=== PATIENT | female | born 1985 | race Caucasian/White ===

== ENCOUNTER 2016-10-28 20:33 | Inpatient (IN) ==
[2016-10-28] MEDS ORDERED: QUELICIN ONE (20:35)
[2016-10-28] MEDS: DIPRIVAN 1% 1,000 MG/100 ML BOTTLE IV SCH ×2 (20:45→23:39)
[2016-10-28] MEDS ORDERED: DIPRIVAN 1% 2,000 MG/200 ML BOTTLE ONE (20:46)
[2016-10-28] MEDS ORDERED: DIPRIVAN 1% 1,000 MG/100 ML BOTTLE IV SCH (20:48)
[2016-10-28] MEDS ORDERED: QUELICIN IV ONE (20:51)
[2016-10-28 20:57] LABS: MANUAL DIFF NEEDED? NO
[2016-10-28 21:00] LABS: BASO% 0.4 % (0.0-0.8); EOS# 0.27 X1000 (0.0-0.7); HEMATOCRIT 42.5 % (37.0-47.0); HEMOGLOBIN 14.5 g/dL (12.0-16.0); LYMPH# 2.46 X1000 (1.2-3.4); LYMPH% 27.2 % (20.5-51.1); MCH 30.7 PG (27-31); MCHC 34.1 g/dL (33-37); MONO# 0.36 X1000 (0.11-0.59); MPV 10.6 FL (7.4-10.4); NEUT% 65.4 % (42.2-75.2); PLT 291 X1000 (130-400); RBC 4.72 XMIL (4.2-5.4)
--- NOTE | 2016-10-28 21:08 | Diag Imaging Result Doc PS360 ---
EXAM: CHEST-PORTABLE HISTORY: OVERDOSE TECHNIQUE: AP portable chest dated 10/28/2016 at 2100 COMMENT: There is an endotracheal tube with its tip at thoracic inlet and an NG tube which passes below the diaphragm. Considering differences in technique there has been no significant change since 03/19/2016. IMPRESSION: No acute disease. Electronically signed by Harley Goncalves 10/28/2016 9:06 PM
--- NOTE | 2016-10-28 21:09 | Diag Imaging Result Doc PS360 ---
EXAM: CHEST/ABD TUBE PLACEMENT HISTORY: NG TUBE PLACEMENT TECHNIQUE: KUB COMMENT: There is an NG tube with its tip in the fundus of the stomach. The bowel gas pattern is unremarkable. There is no evidence of organomegaly or mass. IMPRESSION: NG tube in the stomach. Electronically signed by Harley Goncalves 10/28/2016 9:06 PM
[2016-10-28 21:15] LABS: ACETAMINOPHEN < 1.2 ug/mL (10-30); AGAP 14; ALBUMIN 4.2 g/dL (3.5-5.0); ALKALINE PHOSPHATASE 57 U/L (32-104); BUN 12 mg/dL (8-22); CALCIUM 9.1 mg/dL (8.8-10.2); CHLORIDE 105 mmol/L (98-107); COSMO 285; GOT 11 U/L (10-30); GPT 17 U/L (10-36); POTASSIUM 3.9 mmol/L (3.5-5.1); SODIUM 143 mmol/L (136-145); TCO2 24 mmol/L (25-35); TOTAL BILIRUBIN 0.24 mg/dL (0.20-1.00)
[2016-10-28] MEDS ORDERED: NS 1,000 ML IV ONE (21:18)
[2016-10-28 21:42] LABS: UR AMPHETAMINES QUAL PRESUMPTIVE POSITIVE (NONE DETECT); UR BARBITUATES QUAL NONE DETECTED (NONE DETECT); UR BENZODIAZEPIN QUAL PRESUMPTIVE POSITIVE (NONE DETECT); UR CANNABINOIDS QUAL NONE DETECTED (NONE DETECT); UR COCAINE QUAL NONE DETECTED (NONE DETECT); UR METHADONE QUAL NONE DETECTED (NONE DETECT); UR OPIATES QUAL NONE DETECTED (NONE DETECT); UR OXYCODONE QUAL NONE DETECTED (NONE DETECT); UR PCP QUAL NONE DETECTED (NONE DETECT)
[2016-10-28 21:53] LABS: ALLEN TEST YES; BE 2.8 mmoll (-3.0-3.0); BLOOD TYPE ARTERIAL; DRAW SITE R RADIAL; METHB 1.1 % (0.0-1.5); O2(CT) 19.2 mL/dL (15.0-23.0); PCO2(98.6) 40 mmHg (35-45); PO2(98.6) 411 mmHg (60-100); SAMPLE BLOOD; SRATE 14 BPM; THB 13.5 g/dL (11.5-17.4); TVOL 550 mL; pH(98.6) 7.44 (7.35-7.45)
[2016-10-28 21:54] LABS: MODALITY VENTILATOR
--- NOTE | 2016-10-29 00:35 | HISTORY AND PHYSICAL ---
PRIMARY CARE PHYSICIAN: None. CHIEF COMPLAINT: Found unresponsive. Altered mental status. HISTORY OF PRESENT ILLNESS: This is a 31-year-old female with a past medical history of depression and seizure disorder, who was basically brought to the emergency department because she tried to commit suicide. She took 40 pills of Xanax and 20 of Klonopin. Apparently, her fiance, who she was living with, committed suicide just in front of her. Patient was feeling bad she did warn anybody about his suicidal attempt. She was found altered, talking that she wants to , so she was brought immediately to the emergency department, where she was intubated to protect the airways. At the time of my examination, she is sedated and intubated. The patient is going to be admitted to the hospital for further management. PAST MEDICAL HISTORY: 1. History of suicidal attempt 2 years ago. 2. Seizure disorder, currently on Keppra 750 mg p.o. b.i.d. 3. She was diagnosed with diabetes mellitus type 2, although she is not taking any medications. PAST SURGICAL HISTORY: 1. Total hysterectomy at age 23 because of fibroids. 2. Several right hand surgeries. 3. Cholecystectomy. 4. Tonsillectomy. ALLERGIES: Patient is allergic to morphine, Toradol, penicillin, Levaquin,, ciprofloxacin, and shellfish. SOCIAL HISTORY: Patient was living with her fiance. Apparently, the patient's family is not aware of any drug abuse, no smoking or drinking alcohol. REVIEW OF SYSTEMS: Not possible to evaluate because of the situation of the patient. PHYSICAL EXAMINATION: VITAL SIGNS: Temperature 99.0, heart rate 86, respiratory rate 14, blood pressure 146/116, O2 saturation 100% on mechanical ventilator. GENERAL: This is a 31-year-old female lying in bed, sedated and intubated. HEENT: Head is normocephalic, atraumatic. Anicteric sclerae and pale conjunctivae. Mucous membranes moist. NECK: Supple. No JVD noted. No carotid bruits. No lymphadenopathy. No thyromegaly. CARDIOVASCULAR: S1, S2 heard. No murmurs, gallops, or rubs. Regular rate and rhythm. RESPIRATORY: Clear bilaterally to auscultation. No work of breathing or using accessory muscles. ABDOMEN: Soft, nontender to palpation. Bowel sounds present. No organomegaly. EXTREMITIES: Many scars on the right hand. No clubbing, cyanosis, or edema. NEUROLOGICAL: Patient is sedated and intubated. LABORATORY DATA: Unremarkable. UDS is positive for amphetamines and benzodiazepines. ASSESSMENT: 1. Benzodiazepine intentional overdose. 2. Suicidal attempt. 3. Acute respiratory failure. 4. History of depression, with previous suicidal attempt. PLAN: The patient is going to be admitted to the hospital. The patient was intubated to protect airways. We are going to provide aggressive fluid resuscitation to help her wash out all of the benzodiazepines in the system. Patient intubated. We are going to consult Dr. Albert from Pulmonary to help us in the management of the vent. There is good oxygenation in the first ABGs in the ER. As per family, the patient was talking even before being sent to the ER, so I guess our concern for anoxic encephalopathy is lower. For seizure disorder, we are going to continue with Keppra, but we are going to give her IV, same dose, 750 mg twice daily. Because of recurring history of suicidal attempt,, we are planning to consult [facility] after this patient is medically stable. Further recommendations to follow according to the clinical situation of the patient. cc: Randy Arnold MD
[2016-10-29] MEDS ORDERED: ZOFRAN IV PRN (01:39)
[2016-10-29] MEDS: DIPRIVAN 1% 1,000 MG/100 ML BOTTLE IV SCH ×7 (02:03→21:19)
[2016-10-29] MEDS: LOVENOX SUBQ SCH (02:04)
[2016-10-29] MEDS: NS 1,000 ML IV SCH ×4 (02:04→21:20)
[2016-10-29] MEDS: PROTONIX IV SCH (02:05)
[2016-10-29] MEDS: KEPPRA 750 MG in NS 100 ML IV SCH ×2 (02:58→14:07)
[2016-10-29 04:16] LABS: ALLEN TEST YES; BE 0.1 mmoll (-3.0-3.0); BLOOD TYPE ARTERIAL; METHB 0.8 % (0.0-1.5); O2(CT) 18.3 mL/dL (15.0-23.0); PCO2(98.6) 39 mmHg (35-45); PO2(98.6) 90 mmHg (60-100); SAMPLE BLOOD; SAO2 99.1 % (95.0-100.0); SRATE 14 BPM; THB 13.5 g/dL (11.5-17.4); TVOL 550 mL; pH(98.6) 7.41 (7.35-7.45)
[2016-10-29 04:17] LABS: MODALITY VENTILATOR
[2016-10-29 05:27] LABS: MANUAL DIFF NEEDED? NO
--- NOTE | 2016-10-29 05:38 | EKG Report ---
Test Performed on : 10/28/2016 10:24:14 PM Test Reason : Suspected Overdose Blood Pressure : / mmHG Vent. Rate : 074 BPM Atrial Rate : 074 BPM P-R Int : 152 ms QRS Dur : 090 ms QT Int : 396 ms P-R-T Axes : 060 066 031 degrees QTc Int : 439 ms Normal sinus rhythm. Normal ECG When compared with ECG of 18-JUL-2015 18:23, Vent. rate has decreased BY 42 BPM Non-specific change in ST segment in Lateral leads T wave inversion no longer evident in Inferior leads T wave inversion no longer evident in Lateral leads Confirmed by Howard NANCE, Maikel Pineda ([id number]) on 10/31/2016 9:10:41 AM
[2016-10-29 05:53] LABS: BASO% 0.5 % (0.0-0.8); EOS% 3.8 % (0.0-10.0); HEMATOCRIT 37.8 % (37.0-47.0); HEMOGLOBIN 12.7 g/dL (12.0-16.0); LYMPH# 3.96 X1000 (1.2-3.4); LYMPH% 50.3 % (20.5-51.1); MCH 30.3 PG (27-31); MCHC 33.6 g/dL (33-37); MCV 90.2 FL (81-99); MONO# 0.36 X1000 (0.11-0.59); MONO% 4.6 % (1.7-9.3); MPV 10.8 FL (7.4-10.4); NEUT% 40.8 % (42.2-75.2); PLT 254 X1000 (130-400); RBC 4.19 XMIL (4.2-5.4)
[2016-10-29 06:10] LABS: AGAP 14; BUN 11 mg/dL (8-22); CALCIUM 8.5 mg/dL (8.8-10.2); CHLORIDE 108 mmol/L (98-107); COSMO 286; POTASSIUM 2.7 mmol/L (3.5-5.1); SODIUM 144 mmol/L (136-145); TCO2 22 mmol/L (25-35)
[2016-10-29 07:45] LABS: DRAW SITE R RADIAL
[2016-10-29] MEDS: POTASSIUM CHLORIDE 40 MEQ/SWI 40 MEQ/100 ML IVPB IV SCH ×2 (09:23→10:54)
--- NOTE | 2016-10-29 10:44 | PROGRESS NOTE ---
DATE: 10/29/2016 SUBJECTIVE: The patient is intubated. Her mother was at the bedside. No acute event reported. Her mother reported that the patient was taking a lot of Xanax and Klonopin to end her life because her fiance did commit suicide this past Thursday and she lost her disability check. OBJECTIVE: Vital Signs: Blood pressure 103/65, pulse of 60, respirations 14, temperature of 96.5 degrees, saturations of 98% on 40% FiO2 assist control. General Appearance: Obese, white female, intubated. HEENT: Anicteric sclerae. Clear conjunctivae. Neck: Supple. No JVD. No bruit. Cardiovascular: S1, S2. Normal rate and rhythm. No murmur, rubs, or gallops. Pulmonary: Clear to auscultation bilaterally. GI: Soft, nontender, nondistended. Normoactive bowel sounds. Musculoskeletal: No clubbing, cyanosis, or edema. LABORATORY: White count 7.88, hemoglobin 12.7, hematocrit of 37.8, platelets of 254. Chemistry: Sodium 144, potassium is 2.7, chloride 108, bicarbonate 24, BUN 11, creatinine 0.7, glucose of 99. ASSESSMENT AND PLAN: A 31-year-old with a history of depression and anxiety disorder admitted to the hospital after she ingested 17 tablets of Xanax and unknown amount of Klonopin and tried to kill herself. 1. Overdose with a suicidal attempt. This is a recurrent issue for the patient. She was depressed of losing a loved one this week and lost disability check. The patient is still requiring mechanical life support. We will continue to keep the patient in the intensive care unit. We will continue to monitor and will try to extubate the patient as soon as feasible. Continue supportive care. 2. Hypokalemia. We will replete her potassium. 3. Deep vein thrombosis prophylaxis. The patient is on Lovenox. 4. History of seizure. We will continue Keppra. cc: Randy Arnold MD
--- NOTE | 2016-10-29 14:10 | CONSULTATION ---
DATE OF CONSULTATION: 10/29/2016 REFERRING PHYSICIAN: Randy Arnold MD CHIEF COMPLAINT: Evaluation for vent management, respiratory failure, and drug overdose. HISTORY OF PRESENTING ILLNESS: This is a 31-year-old female with past history of seizure disorder, depression, disability, overweight, who after her fiance' killed himself before her eye this last Thursday. She attempted overdose with benzodiazepines and told her family she did, so brought to the emergency room. We were called for vent management. Case discussed with mother. PAST MEDICAL HISTORY: Type 2 diabetes, seizure disorder, depression, suicide attempts in the past. PAST SURGICAL HISTORY: Tonsillectomy, cholecystectomy, right hand surgeries, and hysterectomy for fibroids. ALLERGIES: Positive to Cipro, Levaquin, penicillin, Toradol, morphine, and shellfish. SOCIAL HISTORY: Was living with her fiyeni'. Not a smoker. REVIEW OF SYSTEMS: As detailed in history of presenting illness; otherwise, noncontributory. FAMILY HISTORY: Positive for depression, hypertension. MEDICATIONS: In the hospital and at home reviewed In the hospital includes Diprivan, Lovenox for DVT prophylaxis, Keppra, Zofran, and Protonix. At home she is on clonazepam and alprazolam. PHYSICAL EXAMINATION: General: She is sedated, intubated, and in bed. Her mom is at the bedside. Vital Signs: Noted. Head and Neck Examination: Trachea midline. Chest Examination: Good entry. Cardiac Examination: S1, S2. Abdomen: Nontender on examination. Extremities: No pedal edema. Neurological Examination: Sedated. LABS AND INVESTIGATIONS: ABG, CBC, CMP, chest x-ray reviewed. Potassium is 2.7 supplied, WBC 7.088. PH 7.4, pCO2 39, PO2 90% on assist control ventilation, 40%, 14 rate, 50 tidal volume, and PEEP of 5. Once sedation is held, the patient wakes up per nursing staff and mother. Again, chest x-ray shows no acute disease. ASSESSMENT AND PLAN: A 31-year-old female with a past medical history as above, now presented with: 1. Respiratory failure secondary to overdose and ventilatory management is required. 2. Overdose with benzodiazepines in suicidal attempt. PLAN: 1. Assist control ventilation. 2. DVT and GI prophylaxis. 3. Sedation. 4. Vent weaning trials in the morning. It is encouraging that the patient was awake when sedation is held, per nursing staff and mother. Thank you for the courtesy of this consultation. cc: MD Randy Hussein MD
[2016-10-30] MEDS: SODIUM CHLORIDE 0.9% INJ SCH (01:20)
[2016-10-30] MEDS: PROTONIX IV SCH (01:20)
[2016-10-30] MEDS: LOVENOX SUBQ SCH (01:20)
[2016-10-30] MEDS: KEPPRA 750 MG in NS 100 ML IV SCH ×2 (01:20→13:12)
[2016-10-30] MEDS: NS 1,000 ML IV SCH ×4 (02:45→18:47)
[2016-10-30] MEDS: DIPRIVAN 1% 1,000 MG/100 ML BOTTLE IV SCH ×2 (02:45→05:52)
[2016-10-30 04:13] LABS: ALLEN TEST YES; BE 0.3 mmoll (-3.0-3.0); BLOOD TYPE ARTERIAL; DRAW SITE R RADIAL; METHB 1.4 % (0.0-1.5); O2(CT) 17.9 mL/dL (15.0-23.0); PCO2(98.6) 48 mmHg (35-45); PO2(98.6) 93 mmHg (60-100); SAMPLE BLOOD; SAO2 98.3 % (95.0-100.0); SRATE 12 BPM; THB 13.2 g/dL (11.5-17.4); TVOL 500 mL; pH(98.6) 7.35 (7.35-7.45)
[2016-10-30 04:14] LABS: MODALITY VENTILATOR
[2016-10-30 05:45] LABS: MANUAL DIFF NEEDED? NO
[2016-10-30 05:52] LABS: BASO% 0.4 % (0.0-0.8); EOS# 0.23 X1000 (0.0-0.7); EOS% 3.4 % (0.0-10.0); HEMATOCRIT 36.7 % (37.0-47.0); HEMOGLOBIN 11.8 g/dL (12.0-16.0); LYMPH# 2.63 X1000 (1.2-3.4); LYMPH% 38.4 % (20.5-51.1); MCH 30.1 PG (27-31); MCHC 32.2 g/dL (33-37); MCV 93.6 FL (81-99); MONO# 0.37 X1000 (0.11-0.59); MONO% 5.4 % (1.7-9.3); MPV 11.1 FL (7.4-10.4); NEUT% 52.4 % (42.2-75.2); PLT 211 X1000 (130-400); RBC 3.92 XMIL (4.2-5.4)
[2016-10-30 06:48] LABS: AGAP 11; BUN 9 mg/dL (8-22); CHLORIDE 112 mmol/L (98-107); COSMO 290; POTASSIUM 3.8 mmol/L (3.5-5.1); SODIUM 147 mmol/L (136-145); TCO2 24 mmol/L (25-35)
--- NOTE | 2016-10-30 07:21 | Diag Imaging Result Doc PS360 ---
EXAM: CHEST-1 VIEW HISTORY: SOB TECHNIQUE: AP portable at 0500 COMMENT: There is an endotracheal tube with its tip slightly above the thoracic inlet. There is an NG tube with tip below the diaphragm. There is minimal by basilar atelectasis. The overall appearance of the chest has not changed significantly since 10/28/2016. IMPRESSION: Subsegmental atelectasis. Electronically signed by Harley Goncalves 10/30/2016 7:19 AM
[2016-10-30] MEDS ORDERED: HALDOL IV ONE (08:32)
[2016-10-30 09:47] LABS: BE 1.3 mmoll (-3.0-3.0); BLOOD TYPE ARTERIAL; METHB 1.4 % (0.0-1.5); PCO2(98.6) 44 mmHg (35-45); PO2(98.6) 83 mmHg (60-100); SAMPLE BLOOD; SAO2 98.6 % (95.0-100.0); THB 12.6 g/dL (11.5-17.4); pH(98.6) 7.39 (7.35-7.45)
[2016-10-30 09:48] LABS: ALLEN TEST YES; DRAW SITE R RADIAL; MODALITY VENTILATOR
--- NOTE | 2016-10-30 11:53 | PROGRESS NOTE ---
DATE: 10/30/2016 SUBJECTIVE: The patient remains intubated. We are weaning the patient off. No acute event reported by the overnight staff. OBJECTIVE: Vital Signs: Blood pressure 116/67, pulse of 65, respirations of 12, temperature of 97.4 degrees, saturation of 100% on 30% FiO2. General Appearance: Obese, white female, intubated. Cardiovascular: S1 and S2. Normal rate and rhythm. No murmur, rubs, or gallops. Pulmonary: Clear to auscultation bilaterally. GI: Soft, nontender, nondistended. Normoactive bowel sounds. Musculoskeletal: No clubbing, cyanosis, or edema. Laboratory: Her white count is 6.84, hemoglobin 11.8, hematocrit of 36.7, platelets of 211,000. Chemistry: Sodium 147, potassium 3.8, chloride 112, bicarb 24, BUN 9, creatinine 0.6, glucose of 77. ASSESSMENT AND PLAN: A 31-year-old, white female with depression, admitted to the hospital for overdose. 1. Intentional overdose on Xanax and Klonopin. We will continue supportive care. The patient was intubated. We are trying to extubate the patient. We will continue to monitor her in the intensive care unit. Once she is medically stable, we will get Steve Foley to see her. 2. History of seizure disorder. We will continue Keppra. 3. Deep venous thrombosis prophylaxis. Put the patient on Lovenox. 4. Code status. The patient is a full code. cc: Randy Arnold MD
[2016-10-30] MEDS: HALDOL IV PRN (22:16)
[2016-10-31] MEDS: SODIUM CHLORIDE 0.9% INJ SCH (01:20)
[2016-10-31] MEDS: NS 1,000 ML IV SCH (01:20)
[2016-10-31] MEDS: PROTONIX IV SCH (01:20)
[2016-10-31] MEDS: LOVENOX SUBQ SCH (01:20)
[2016-10-31] MEDS: KEPPRA 750 MG in NS 100 ML IV SCH ×2 (01:20→12:49)
[2016-10-31 04:29] LABS: ALLEN TEST YES; BE -0.1 mmoll (-3.0-3.0); BLOOD TYPE ARTERIAL; DRAW SITE R RADIAL; METHB 0.8 % (0.0-1.5); O2(CT) 15.6 mL/dL (15.0-23.0); PCO2(98.6) 47 mmHg (35-45); PO2(98.6) 121 mmHg (60-100); SAMPLE BLOOD; THB 11.2 g/dL (11.5-17.4); pH(98.6) 7.35 (7.35-7.45)
[2016-10-31 04:32] LABS: MODALITY CANNULA
--- NOTE | 2016-10-31 07:13 | Diag Imaging Result Doc PS360 ---
EXAM: CHEST-1 VIEW HISTORY: SOB TECHNIQUE: AP portable at 0500 COMMENT: There is increasing ill-defined opacity over the right base compared to 10/30/2016. Otherwise has been no significant change. The NG tube and endotracheal tube have been removed. IMPRESSION: Worsened atelectasis or pneumonia right lower lobe. Electronically signed by Harley Goncalves 10/31/2016 7:10 AM
[2016-10-31 07:49] LABS: MANUAL DIFF NEEDED? NO
[2016-10-31 07:53] LABS: BASO% 0.3 % (0.0-0.8); EOS# 0.21 X1000 (0.0-0.7); EOS% 3.1 % (0.0-10.0); HEMATOCRIT 33.3 % (37.0-47.0); HEMOGLOBIN 10.9 g/dL (12.0-16.0); LYMPH# 2.88 X1000 (1.2-3.4); LYMPH% 41.9 % (20.5-51.1); MCH 30.4 PG (27-31); MCHC 32.7 g/dL (33-37); MONO# 0.34 X1000 (0.11-0.59); MONO% 4.9 % (1.7-9.3); MPV 11.4 FL (7.4-10.4); NEUT% 49.8 % (42.2-75.2); PLT 186 X1000 (130-400); RBC 3.58 XMIL (4.2-5.4)
[2016-10-31 08:20] LABS: AGAP 11; BUN 7 mg/dL (8-22); CALCIUM 7.8 mg/dL (8.8-10.2); CHLORIDE 114 mmol/L (98-107); COSMO 292; POTASSIUM 3.2 mmol/L (3.5-5.1); SODIUM 149 mmol/L (136-145); TCO2 24 mmol/L (25-35)
[2016-10-31] MEDS ORDERED: NS 1,000 ML IV SCH (10:47)
--- NOTE | 2016-10-31 11:25 | PROGRESS NOTE ---
DATE: 10/31/2016 SUBJECTIVE: The patient was extubated yesterday. Still very sedated. She is still very teary, very depressed and still suicidal. OBJECTIVE: Vital Signs: Blood pressure 121/52, pulse 65, respirations 18, temperature 98.8 degrees, saturations of 97% on 2 L nasal cannula. General: Morbidly obese, white female, still very drowsy but easily arousable. HEENT: Anicteric, clear conjunctivae. Neck: Supple. No JVD. No bruit. Cardiovascular: S1, S2. Normal rate and rhythm. No murmur, rubs, or gallops. Pulmonary: Clear to auscultation bilaterally. Gastrointestinal: Soft, nontender, nondistended. Normoactive bowel sounds. Musculoskeletal: No clubbing, cyanosis, or edema. LABORATORY: White count 6.87, hemoglobin 10.9, hematocrit of 33.3. Platelets 186,000. Chemistry: Sodium 149, potassium of 3.2, replete, chloride 114, BUN 7, creatinine 0.6. Glucose of 66. ASSESSMENT AND PLAN: A 31-year-old, white female admitted to the hospital for suicidal attempt by overdose on benzodiazepines. 1. Overdose intentional, depressed, suicidal. Still very sedated. When she has become more awake and alert, we will ask [facility] to evaluate the patient for inpatient treatment. She is still very high risk for recurrent suicidal because of her recent loss of her fiancee. 2. Seizure disorder. We will continue Keppra for now. 3. We will hold all of her benzodiazepine. 4. Deep vein thrombosis prophylaxis. Patient on Lovenox. 5. Code status: Patient is full code.
[2016-10-31] MEDS: HALDOL IV PRN ×2 (14:05→21:11)
[2016-11-01] MEDS: LOVENOX SUBQ SCH (02:17)
[2016-11-01] MEDS: PROTONIX IV SCH (02:17)
[2016-11-01 05:13] LABS: ALLEN TEST YES; BLOOD TYPE ARTERIAL; DRAW SITE R RADIAL; METHB 1.1 % (0.0-1.5); O2(CT) 16.8 mL/dL (15.0-23.0); PO2(98.6) 121 mmHg (60-100); SAMPLE BLOOD; SAO2 99.6 % (95.0-100.0); THB 12.2 g/dL (11.5-17.4); pH(98.6) 7.34 (7.35-7.45)
[2016-11-01 05:15] LABS: MODALITY CANNULA; PCO2(98.6) 51 mmHg (35-45)
[2016-11-01 07:57] LABS: MANUAL DIFF NEEDED? NO
[2016-11-01 08:04] LABS: BASO% 0.3 % (0.0-0.8); EOS# 0.36 X1000 (0.0-0.7); EOS% 4.8 % (0.0-10.0); HEMOGLOBIN 11.4 g/dL (12.0-16.0); LYMPH% 37.1 % (20.5-51.1); MCH 29.8 PG (27-31); MCHC 33.5 g/dL (33-37); MCV 88.8 FL (81-99); MONO# 0.33 X1000 (0.11-0.59); MONO% 4.4 % (1.7-9.3); MPV 10.5 FL (7.4-10.4); NEUT% 53.4 % (42.2-75.2); PLT 218 X1000 (130-400); RBC 3.83 XMIL (4.2-5.4)
--- NOTE | 2016-11-01 08:06 | Diag Imaging Result Doc PS360 ---
EXAM: CHEST-1 VIEW INDICATION: SOB TECHNIQUE: One view COMPARISON: 10/31/2016 FINDINGS: The ill-defined opacity at the right lower lung zone is unchanged. There are no new consolidations. Cardiac silhouette is stable. IMPRESSION: Stable chest. Electronically signed by Munir Talbot 11/01/2016 8:03 AM
[2016-11-01 08:23] LABS: AGAP 9; BUN 4 mg/dL (8-22); CALCIUM 8.3 mg/dL (8.8-10.2); CHLORIDE 109 mmol/L (98-107); COSMO 283; POTASSIUM 3.6 mmol/L (3.5-5.1); SODIUM 144 mmol/L (136-145); TCO2 26 mmol/L (25-35)
--- NOTE | 2016-11-01 13:33 | PROGRESS NOTE ---
DATE: 11/01/2016 SUBJECTIVE: The patient is a little drowsy and sleepy but much better than she was yesterday. More awake and alert. Answers questions appropriately. OBJECTIVE: Vital Signs: Blood pressure 126/76, pulse of 70, respirations 14, temp 98.4 degrees, sat of 100% on 1 L nasal cannula. General Appearance: Morbidly obese, white female, a little drowsy but awake, alert and oriented x3. HEENT: Multiple tattoos, earrings and nose ring but anicteric, clear conjunctivae. Neck: Supple. No JVD. No bruit. Cardiovascular: S1, S2. Normal rate and rhythm. No murmur, rubs, or gallops. Pulmonary: Clear to auscultation bilaterally. GI: Soft, nontender, nondistended. Normoactive bowel sounds. Musculoskeletal: No clubbing, cyanosis, or edema. LABORATORY: White count 7.55, hemoglobin of 11.4, hematocrit 34.0, platelets of 218,000. Chemistry: Sodium 144, potassium 3.6, chloride 109, bicarb 26, BUN 4, creatinine 0.5, glucose of 91. ASSESSMENT AND PLAN: This is a 31-year-old, white female admitted to the hospital after she was intentionally overdosed on benzodiazepine with the intent to commit suicide. Overdose. The patient is medically stable and can transferred to [facility] if appropriate. We will continue supportive care. We will continue to monitor the patient. Patient in the ICU for now.
[2016-11-01 16:33] VITALS: BP 128/74
--- NOTE | 2016-11-02 06:39 | DISCHARGE SUMMARY ---
ADMISSION DATE: 10/28/2016 DISCHARGE DATE: 11/01/2016 PRIMARY CARE PHYSICIAN: Not listed. DISCHARGE DIAGNOSES: 1. Intentionally overdosed on benzodiazepine. 2. Suicidal attempt. 3. Depression. 4. Seizure disorder. DISCHARGE MEDICATIONS: Keppra 750 b.i.d. SIGNIFICANT LABORATORY AND IMAGING: White count 7.55, hemoglobin 11.4, hematocrit of 34, platelets of 218,000. Chemistry: Sodium 140, potassium 3.6, chloride 109, bicarb 26, BUN 4, creatinine 0.5, glucose of 91. Her UDS was positive for amphetamine and benzodiazepine. Chest x- ray on the showed a stable chest x-ray. No new consolidations. There is some ill-defined opacity in the right lower lung that has not been changed. HOSPITAL COURSE: The patient is a 31-year-old, white female with a history of depression, overdose on Xanax and Klonopin, and was intubated upon arrival. The patient had been depressed. Her fiancee a few days prior. The patient has lost her disability and had been very depressed. Subsequently, she decided to take her life by overdose. The patient was admitted to our service. Intubated in the ICU. Pulmonology managing the ventilator. After 2 days of intubation, we were able to extubate the patient. She continued to remain very sedated for another 36 hours until she became more fully awake and alert. She is still depressed. We asked [facility] to come and evaluate the patient for inpatient psychiatric admission so that they can adjust her medications. The patient was transferred to [facility] on 11/01/2016.
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
== END 2016-11-01 18:30 ==
LOC: SUPCPDRO → ED 20:33 → SUPCPDRO 22:14 → SUATTDRO 22:14 → ICU 22:14
PROVIDERS: ATTEND Internal Medicine

== ENCOUNTER 2017-01-09 17:25 | Inpatient (IN) ==
[2017-01-09] MEDS ORDERED: NARCAN IV ONE (17:34)
[2017-01-09] MEDS ORDERED: NS 1,000 ML IV ONE (17:34)
[2017-01-09] MEDS ORDERED: NS 2,000 ML ONE (17:34)
[2017-01-09 17:39] LABS: ALLEN TEST YES; BE -7.5 mmoll (-3.0-3.0); BLOOD TYPE ARTERIAL; DRAW SITE R RADIAL; METHB 1.2 % (0.0-1.5); O2(CT) 19.4 mL/dL (15.0-23.0); SAMPLE BLOOD; SAO2 100.1 % (95.0-100.0); THB 14.2 g/dL (11.5-17.4)
[2017-01-09] MEDS ORDERED: SODIUM BICARBONATE 8.4% IV PUSH ONE (17:39)
[2017-01-09 17:54] LABS: URINE CULTURE NEEDED? NO; URINE MICRO REVIEW NEEDED? NO; URINE SOURCE CATH
[2017-01-09 18:04] LABS: BASO% 0.1 % (0.0-0.8); EOS# 0.05 X1000 (0.0-0.7); EOS% 0.2 % (0.0-10.0); HEMATOCRIT 41.5 % (37.0-47.0); HEMOGLOBIN 13.6 g/dL (12.0-16.0); IMM GRAN# 0.22 X1000 (0.0-0.04); IMM GRAN% 1.1 % (0.0-0.5); LYMPH# 1.31 X1000 (1.2-3.4); LYMPH% 6.5 % (20.5-51.1); MANUAL DIFF NEEDED? NO; MCH 30.6 PG (27-31); MCHC 32.8 g/dL (33-37); MCV 93.5 FL (81-99); MONO# 0.99 X1000 (0.11-0.59); MONO% 4.9 % (1.7-9.3); NEUT% 87.2 % (42.2-75.2); PLT 304 X1000 (130-400); RBC 4.44 XMIL (4.2-5.4)
[2017-01-09 18:07] LABS: BILIRUBIN URINE NEGATIVE (NEGATIVE); BLOOD URINE NEGATIVE (NEGATIVE); COLOR YELLOW; GLUCOSE URINE NEGATIVE (NEGATIVE); LEUKOCYTES URINE NEGATIVE (NEGATIVE); NITRITE URINE NEGATIVE (NEGATIVE); PH URINE 5.5; PROTEIN URINE 50 mg/dL (NEGATIVE); SP GRAVITY URINE 1.028; TURBIDITY URINE HAZY (CLEAR); UROBILINOGEN URINE NORMAL (NORMAL)
[2017-01-09 18:08] LABS: UR EPITHELIAL CELLS >10 /HPF (<10); URINE BACTERIA NEGATIVE /HPF; URINE RBC <10 /HPF (<10); URINE WBC <10 /HPF (<10)
[2017-01-09 18:11] LABS: INR 1.09; PROTIME 11.5 Seconds (9.2-11.7); PTT 24.3 Seconds (22.0-36.0)
[2017-01-09 18:18] LABS: ACETAMINOPHEN < 1.2 ug/mL (10-30); AGAP 17; ALBUMIN 4.2 g/dL (3.5-5.0); ALKALINE PHOSPHATASE 54 U/L (32-104); BUN 14 mg/dL (8-22); CALCIUM 8.6 mg/dL (8.8-10.2); CHLORIDE 103 mmol/L (98-107); COSMO 290; GOT 13 U/L (10-30); GPT 15 U/L (10-36); POTASSIUM 4.3 mmol/L (3.5-5.1); SODIUM 146 mmol/L (136-145); TCO2 26 mmol/L (25-35); TOTAL BILIRUBIN 0.17 mg/dL (0.20-1.00); TOTAL PROTEIN 6.5 g/dL (6.3-8.3)
[2017-01-09 18:18] LABS: UR AMPHETAMINES QUAL PRESUMPTIVE POSITIVE (NONE DETECT); UR BARBITUATES QUAL NONE DETECTED (NONE DETECT); UR BENZODIAZEPIN QUAL PRESUMPTIVE POSITIVE (NONE DETECT); UR CANNABINOIDS QUAL NONE DETECTED (NONE DETECT); UR COCAINE QUAL NONE DETECTED (NONE DETECT); UR METHADONE QUAL NONE DETECTED (NONE DETECT); UR OPIATES QUAL PRESUMPTIVE POSITIVE (NONE DETECT); UR OXYCODONE QUAL NONE DETECTED (NONE DETECT); UR PCP QUAL NONE DETECTED (NONE DETECT)
[2017-01-09 18:20] LABS: CK PROFILE 478 U/L (24-173)
[2017-01-09 18:36] LABS: PCO2(98.6) 62 mmHg (35-45); pH(98.6) 7.16 (7.35-7.45)
[2017-01-09 18:36] LABS: CK INDEX 1.7 (0.0-2.5); CK-MB 7.98 ng/mL (0.0-5.0)
[2017-01-09 18:37] LABS: MODALITY NRB; PO2(98.6) 269 mmHg (60-100)
--- NOTE | 2017-01-09 18:44 | Diag Imaging Result Doc PS360 ---
CHEST-PORTABLE - 01/09/2017 INDICATION: AMS TECHNIQUE: COMPARISON: 10/16/2016 FINDINGS: The lungs are normally expanded and clear. Heart size and mediastinal contours are normal. No pneumothorax or pleural effusion. IMPRESSION: Negative exam. Electronically signed by Sekou Ybarra 01/09/2017 6:42 PM
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
[2017-01-09 20:54] LABS: ALLEN TEST YES; BE -1.6 mmoll (-3.0-3.0); BLOOD TYPE ARTERIAL; DRAW SITE R RADIAL; O2(CT) 18.5 mL/dL (15.0-23.0); PO2(98.6) 306 mmHg (60-100); SAMPLE BLOOD; SAO2 100.1 % (95.0-100.0); pH(98.6) 7.26 (7.35-7.45)
[2017-01-09 20:55] LABS: MODALITY BI PAP
[2017-01-09 20:56] LABS: PCO2(98.6) 59 mmHg (35-45)
--- NOTE | 2017-01-09 20:57 | PROVIDER DOCUMENTATION ---
This chart was entered by Peri Wilson Scribe, acting as scribe for Kizzy Boyd MD. [id number] Abuse/Overdose - General Chief Complaint: Overdose Stated Complaint: post arresst Time Seen by Provider: 01/09/17 17:33 Source: EMS Allergies/Adverse Reactions: Allergies Allergy/AdvReac Type Severity Reaction Status Date / Time iodine Allergy Severe ANAPHYLAXIS Verified 10/28/16 20:49 ketorolac tromethamine * Allergy Severe ANAPHYLAXIS Verified 10/28/16 20:49 [From Toradol] morphine Allergy Severe ANAPHYLAXIS Verified 10/28/16 20:49 Penicillins Allergy Severe ANAPHYLAXIS Verified 10/28/16 20:49 shellfish derived Allergy Severe ANAPHYLAXIS Verified 10/28/16 20:49 tramadol HCl * [From Ultram] Allergy Severe ANAPHYLAXIS Verified 10/28/16 20:49 levofloxacin [From Levaquin] Allergy Intermediate edema Verified 10/28/16 20:49 Home Medications: Home Medication List Medication Instructions Recorded Confirmed Last Taken Type Levetiracetam 750 mg PO BID 10/28/16 11/01/16 11/01/16 08:00 History - History of Present Illness-Drug/Alcohol Nature of Presenting Problem: Pt is 31 y/o F presents to the ED via EMS for post arrest. EMS states drug overdose with unknown drugs. EMS states arriving on scene and BLS was in progress. EMS did pulse check and pulse was found. EMS states receiving 500 of NS. EMS states IO to Edwin mcdaniel. Pt was given 2 mg Narcan on arrival. This episode of drinking or use began:: just prior to arrival Severity: reports: moderate Situational problems related to:: reports: N/A Psychiatric Complaints: reports: denies symptoms Associated Symptoms: reports: denies symptoms Any injuries associated with this episode of intoxication?: No (unable to obtain per Pt's condition ) Similar Symptoms Previously?: No Recently seen or treated by another doctor?: No - Substance Abuse Substance Use: reports: other (heroin) - Overdose Intentional drug overdose?: No List substance(s) ingested.: unknown Review of Systems - Adult - REVIEW OF SYSTEMS - ADULT ROS:: unobtainable per condition Constitutional: reports: no symptoms reported Eyes: reports: no symptoms reported Ears, Nose, Mouth & Throat: reports: no symptoms reported Cardiovascular: reports: no symptoms reported Respiratory: reports: no symptoms reported Gastrointestinal: reports: no symptoms reported Genitourinary: reports: no symptoms reported Musculoskeletal: reports: no symptoms reported Integumentary: reports: no symptoms reported Neurological: reports: no symptoms reported Psychiatric: reports: no symptoms reported Endocrine: reports: no symptoms reported Hematologic/Lymphatic: reports: no symptoms reported Allergic/Immunologic: reports: no symptoms reported All Other Systems: Reviewed and Negative Past History - Adult - PAST MEDICAL HISTORY-ADULT Review of Records: reports: Nursing Assessment Review, Medications Reviewed, Social history reviewed & non-contributory. Major Childhood Illnesses: reports: denies history Cardiovascular: reports: denies history Respiratory: reports: asthma Gastrointestinal: reports: denies history Obstetrical/Gynecological: reports: denies history Genitourinary: reports: other Musculoskeletal: reports: denies history Neurological: reports: Seizures/Epilepsy Psychiatric: reports: bipolar Endocrine/Immune: reports: denies history Other Conditions: reports: denies history - PRIOR SURGERIES/PROCEDURES Surgical/Procedure History: reports: appendectomy, cholecystectomy, hysterectomy , other - PRIOR HOSPITALIZATIONS Prior Hospitalizations: reports: none - IMMUNIZATION STATUS Childhood Immunizations: See Nurse Assessment Flu Vaccine: See Nurse Assessment - FAMILY HISTORY Family History: mental illness, seizures - SOCIAL HISTORY Smoking: cigarettes, greater than 1 pack/day Provider spent 3-5 mins advising pt. on dangers of tobacco.: Discussed manners to quit use, and f/u contacts for add'l counseling. Substance Use: other (heroin) Living Situation: family Physical Exam-General - PHYSICAL EXAM-ADULT Initial Vital Signs Reviewed: Yes - CONSTITUTIONAL General Appearance: lethargic, obtunded - EYES Eyes: other (pin point pupils, reactive to light) - NECK Neck: other (bloody discharge from mouth and nose, no clear source of trauma) - RESPIRATORY Respiratory: other (pt on BiPAP, now breathing spontaneously) - CARDIOVASCULAR Cardiovascular: regular rate, rhythm, tachycardia (HR 110-130) - GASTROINTESTINAL (ABDOMEN) Abdominal Exam: normal bowel sounds, non tender, soft - LYMPHATIC Lymphatic: no adenopathy - MUSCULOSKELETAL Back Exam: normal inspection Extremity: other (unable to assess) - SKIN Integumentary: normal color - NEUROLOGIC Neurologic: other (responsive to voice and painful stimuli) - PSYCHIATRIC Psych/Mental Status: other (unable to assess) Progress - PLAN OF CARE/RESULTS Progress/Plan/Lab Results: Vital Signs - 8 hr 01/09/17 17:50 01/09/17 17:59 01/09/17 20:27 Temperature 95.6 F L Pulse Rate 118 H 120 H 88 Respiratory Rate 15 25 H Blood Pressure 89/56 120/76 133/80 O2 Sat by Pulse Oximetry 95 100 100 Laboratory Results - last 24 hr 01/09/17 01/09/17 01/09/17 17:33 17:34 17:45 WBC RBC Hgb Hct MCV MCH MCHC RDW Std Deviation Plt Count MPV Immature Gran % (Auto) Neut % (Auto) Lymph % (Auto) Lassen % (Auto) Eos % (Auto) Baso % (Auto) Immature Gran # (Auto) Neut # (Auto) Lymph # (Auto) Lassen # (Auto) Eos # (Auto) Baso # (Auto) PT INR PTT (Actin FS) Specimen Type ARTERIAL Sample Site R RADIAL pH 7.16 L* pCO2 62 H* pO2 269 H HCO3 19.0 L Base Excess -7.5 L Oxyhemoglobin 93.8 L ABG O2 Sat (Calculated) 19.4 ABG O2 Saturation 100.1 H ABG Carboxyhemoglobin 5.10 H* ABG Methemoglobin 1.2 Lio Test YES A-a O2 Difference 367.0 Total Hemoglobin 14.2 Lactate 3.30 H Blood Gas Modality NRB FiO2 % 100.0 Sodium 146 H Potassium 4.3 Chloride 103 Carbon Dioxide 26 Anion Gap 17 BUN 14 Creatinine 1.7 H Estimated GFR/1.73 m2 35 BUN/Creatinine Ratio 8 Glucose 83 POC Glucose 192 H D Calculated Osmolality 290 Calcium 8.6 L Total Bilirubin 0.17 L AST 13 ALT 15 Alkaline Phosphatase 54 Creatine Kinase 478 H Creatine Kinase Index 1.7 CK-MB (CK-2) 7.98 H Troponin T Total Protein 6.5 Albumin 4.2 Globulin 2.3 Albumin/Globulin Ratio 1.8 Urine Source Urine Color Urine Turbidity Urine pH Ur Specific Montgomery Urine Protein Ur Glucose (Stick) Ur Ketones (Stick) Urine Blood Urine Nitrite Urine Bilirubin Urobilinogen Dipstick Urine Leukocytes Urine WBC (Auto) Urine RBC (Auto) U Epithel Cells (Auto) Urine Bacteria (Auto) Urine Test Salicylates < 3.00 L Urine Opiates Screen Ur Oxycodone Screen Ur Methadone, Qual Acetaminophen < 1.2 L Ur Barbiturates Screen Ur Phencyclidine Scrn Ur Amphetamines Screen U Benzodiazepines Scrn Urine Cocaine Screen U Cannabinoids Screen Plasma/Serum Ethyl Alc 01/09/17 01/09/17 01/09/17 17:45 17:45 17:45 WBC 20.06 H RBC 4.44 Hgb 13.6 Hct 41.5 MCV 93.5 MCH 30.6 MCHC 32.8 L RDW Std Deviation 12.3 Plt Count 304 MPV 10.0 Immature Gran % (Auto) 1.1 H Neut % (Auto) 87.2 H Lymph % (Auto) 6.5 L Lassen % (Auto) 4.9 Eos % (Auto) 0.2 Baso % (Auto) 0.1 Immature Gran # (Auto) 0.22 H Neut # (Auto) 17.46 H Lymph # (Auto) 1.31 Lassen # (Auto) 0.99 H Eos # (Auto) 0.05 Baso # (Auto) 0.03 PT 11.5 INR 1.09 PTT (Actin FS) 24.3 Specimen Type Sample Site pH pCO2 pO2 HCO3 Base Excess Oxyhemoglobin ABG O2 Sat (Calculated) ABG O2 Saturation ABG Carboxyhemoglobin ABG Methemoglobin Lio Test A-a O2 Difference Total Hemoglobin Lactate Blood Gas Modality FiO2 % Sodium Potassium Chloride Carbon Dioxide Anion Gap BUN Creatinine Estimated GFR/1.73 m2 BUN/Creatinine Ratio Glucose POC Glucose Calculated Osmolality Calcium Total Bilirubin AST ALT Alkaline Phosphatase Creatine Kinase Creatine Kinase Index CK-MB (CK-2) Troponin T Total Protein Albumin Globulin Albumin/Globulin Ratio Urine Source Urine Color Urine Turbidity Urine pH Ur Specific Montgomery Urine Protein Ur Glucose (Stick) Ur Ketones (Stick) Urine Blood Urine Nitrite Urine Bilirubin Urobilinogen Dipstick Urine Leukocytes Urine WBC (Auto) Urine RBC (Auto) U Epithel Cells (Auto) Urine Bacteria (Auto) Urine Test Salicylates Urine Opiates Screen Ur Oxycodone Screen Ur Methadone, Qual Acetaminophen Ur Barbiturates Screen Ur Phencyclidine Scrn Ur Amphetamines Screen U Benzodiazepines Scrn Urine Cocaine Screen U Cannabinoids Screen Plasma/Serum Ethyl Alc 01/09/17 01/09/17 01/09/17 17:45 17:46 17:46 WBC RBC Hgb Hct MCV MCH MCHC RDW Std Deviation Plt Count MPV Immature Gran % (Auto) Neut % (Auto) Lymph % (Auto) Lassen % (Auto) Eos % (Auto) Baso % (Auto) Immature Gran # (Auto) Neut # (Auto) Lymph # (Auto) Lassen # (Auto) Eos # (Auto) Baso # (Auto) PT INR PTT (Actin FS) Specimen Type Sample Site pH pCO2 pO2 HCO3 Base Excess Oxyhemoglobin ABG O2 Sat (Calculated) ABG O2 Saturation ABG Carboxyhemoglobin ABG Methemoglobin Lio Test A-a O2 Difference Total Hemoglobin Lactate Blood Gas Modality FiO2 % Sodium Potassium Chloride Carbon Dioxide Anion Gap BUN Creatinine Estimated GFR/1.73 m2 BUN/Creatinine Ratio Glucose POC Glucose Calculated Osmolality Calcium Total Bilirubin AST ALT Alkaline Phosphatase Creatine Kinase Creatine Kinase Index CK-MB (CK-2) Troponin T 0.054 Total Protein Albumin Globulin Albumin/Globulin Ratio Urine Source CATH Urine Color YELLOW Urine Turbidity HAZY Urine pH 5.5 Ur Specific Montgomery 1.028 Urine Protein 50 A Ur Glucose (Stick) NEGATIVE Ur Ketones (Stick) TRACE A Urine Blood NEGATIVE Urine Nitrite NEGATIVE Urine Bilirubin NEGATIVE Urobilinogen Dipstick NORMAL Urine Leukocytes NEGATIVE Urine WBC (Auto) <10 Urine RBC (Auto) <10 U Epithel Cells (Auto) >10 A Urine Bacteria (Auto) NEGATIVE Urine Test Salicylates Urine Opiates Screen PRESUMPTIVE POSITIVE A Ur Oxycodone Screen NONE DETECTED Ur Methadone, Qual NONE DETECTED Acetaminophen Ur Barbiturates Screen NONE DETECTED Ur Phencyclidine Scrn NONE DETECTED Ur Amphetamines Screen PRESUMPTIVE POSITIVE A U Benzodiazepines Scrn PRESUMPTIVE POSITIVE A Urine Cocaine Screen NONE DETECTED U Cannabinoids Screen NONE DETECTED Plasma/Serum Ethyl Alc 01/09/17 17:46 WBC RBC Hgb Hct MCV MCH MCHC RDW Std Deviation Plt Count MPV Immature Gran % (Auto) Neut % (Auto) Lymph % (Auto) Lassen % (Auto) Eos % (Auto) Baso % (Auto) Immature Gran # (Auto) Neut # (Auto) Lymph # (Auto) Lassen # (Auto) Eos # (Auto) Baso # (Auto) PT INR PTT (Actin FS) Specimen Type Sample Site pH pCO2 pO2 HCO3 Base Excess Oxyhemoglobin ABG O2 Sat (Calculated) ABG O2 Saturation ABG Carboxyhemoglobin ABG Methemoglobin Lio Test A-a O2 Difference Total Hemoglobin Lactate Blood Gas Modality FiO2 % Sodium Potassium Chloride Carbon Dioxide Anion Gap BUN Creatinine Estimated GFR/1.73 m2 BUN/Creatinine Ratio Glucose POC Glucose Calculated Osmolality Calcium Total Bilirubin AST ALT Alkaline Phosphatase Creatine Kinase Creatine Kinase Index CK-MB (CK-2) Troponin T Total Protein Albumin Globulin Albumin/Globulin Ratio Urine Source Urine Color Urine Turbidity Urine pH Ur Specific Montgomery Urine Protein Ur Glucose (Stick) Ur Ketones (Stick) Urine Blood Urine Nitrite Urine Bilirubin Urobilinogen Dipstick Urine Leukocytes Urine WBC (Auto) Urine RBC (Auto) U Epithel Cells (Auto) Urine Bacteria (Auto) Urine Test NEGATIVE Salicylates Urine Opiates Screen Ur Oxycodone Screen Ur Methadone, Qual Acetaminophen Ur Barbiturates Screen Ur Phencyclidine Scrn Ur Amphetamines Screen U Benzodiazepines Scrn Urine Cocaine Screen U Cannabinoids Screen Plasma/Serum Ethyl Alc Orders Category Date Time Status Cardiac Monitoring DIRECTED Care 01/09/17 17:34 Active Finger Stick Blood Sugar (ED) DIRECTED Care 01/09/17 17:34 Active Guzman Cath Insertion ORDERED Care 01/09/17 17:34 Active Oxygen Therapy- ED Nursing DIRECTED Care 01/09/17 17:34 Active Saline Loc NOW Care 01/09/17 17:34 Active CHEST-PORTABLE [RAD] Stat Exams 01/09/17 17:[address] HEAD W/O CONTRAST [CT] Stat Exams 01/09/17 18:50 Completed ABG [RESP] Routine Lab 01/09/17 17:34 Completed ABG [RESP] Routine Lab 01/09/17 19:25 Ordered ACETAMINOPHEN [TDM] Stat Lab 01/09/17 17:45 Completed ALCOHOL BLOOD Stat Lab 01/09/17 17:45 Completed CBC WITH ELECTRONIC DIFF [HEME] Stat Lab 01/09/17 17:45 Completed CK PROFILE [SP CHEM] Stat Lab 01/09/17 17:45 Completed COMPREHENSIVE METABOLIC PANEL [CHEM] Stat Lab 01/09/17 17:45 Completed TEST-URINE [PREG] Stat Lab 01/09/17 17:46 Completed PROTIME WITH INR [COAG] Stat Lab 01/09/17 17:45 Completed PTT [COAG] Stat Lab 01/09/17 17:45 Completed SALICYLATES [TDM] Stat Lab 01/09/17 17:45 Completed TROPONIN T Stat Lab 01/09/17 17:45 Completed URINALYSIS W/POSS RFLX CULT-1 [URINALYSIS] Stat Lab 01/09/17 17:46 Completed URINE DRUG SCREEN Stat Lab 01/09/17 17:46 Completed 0.9% Sodium Chloride Inj [Ns] 1,000 ml Med 01/09/17 17:34 Discontinued .ROUTE As Directed 0.9% Sodium Chloride Inj [Ns] 1,000 ml Med 01/09/17 17:34 Discontinued IV 999 mls/hr Naloxone [Narcan] Med 01/09/17 17:34 Discontinued 2 mg IV NOW ONE Sodium Bicarbonate 8.4% Med 01/09/17 17:39 Discontinued 50 meq IV PUSH NOW ONE Pulse Oximetry Stat Oth 01/09/17 17:34 Completed EKG [EKG] Stat Ther 01/09/17 17:34 Ordered Result Diagrams: 01/09/17 17:45 01/09/17 17:45 - REASSESSMENT Reassessment #1 Time Reassessed: 19:00 (pt breathing spontaneously, on BiPAP) - EKG 1 Time of EKG reading by physician:: 17:23 EKG Read and Signed by:: Ranjith Churchill EKG Interpretation (*Must complete 3 of following elements*): Abnormal Rate: 122 Rhythm: sinus tachycardia Comments: nonspecific ST abnormality Departure - Departure Date of Disposition Decision: 01/09/17 Time of Disposition Decision: 20:55 DIAGNOSIS: Overdose Qualifiers: Encounter type: initial encounter Injury intent: undetermined intent Qualified Code(s): T50.904A - Poisoning by unspecified drugs, medicaments and biological substances, undetermined, initial encounter Disposition: ADMITTED INPATIENT 09 Certified Medical Emergency: Emergent Condition: Critical Referrals and Follow-Ups: None,PCP [Primary Care Provider] - - Critical Care Note This patient required my direct & personal management of CC.: Yes Total Time (mins): 50 Critical Care Statement: This patient required my direct personal management to treat or rule out processes, the absence of which, could potentiallly result in sudden, clinically significant life or limb threatening deterioration. Attestation - Physician/ GINA Attestation Patient care was provided by Advanced Practice Provider:: Yes Advanced Practice Provider documentation review:: The Mid-level provider documentation, treatment plan and medical decision making was reviewed by the physician who agrees with all treatment and medical decision making by the MLP. The physician spent face to face time with patient:: Yes Advanced Practice Provider documentation review:: Supervising physician onsite and consulted in the evaluation and care of this patient. The physician did have a face to face encounter with the patient. This chart was documented by the indicated scribe, (Peri Wilson Scribe) and accurately reflects the services I performed and decisions made by me, Kizzy Boyd MD, as attested by the provider's signature.
[2017-01-09] MEDS ORDERED: ATIVAN IV PRN (21:47)
[2017-01-09] MEDS ORDERED: ZOFRAN IV PRN (21:47)
[2017-01-09] MEDS ORDERED: NARCAN IV PRN (21:47)
[2017-01-09] MEDS: DUONEB (A & A) INH SCH (22:00)
--- NOTE | 2017-01-09 22:10 | HISTORY AND PHYSICAL ---
PRIMARY CARE PHYSICIAN: None. REASON FOR ADMISSION: Found unresponsive at home. HISTORY OF PRESENT ILLNESS: Ms Jeane Sanchez is a 31-year-old lady with past medical history of clinical depression, seizures, asthma who was found unresponsive by her soon-to- be ex boyfriend. Apparently she and her boyfriend had a disagreement and he decided that he was going to part ways with her. Oddly enough today she was supposed to be baby-sitting her soon-to- be ex-boyfriend's son and nobody knows what transpired but when the boyfriend came home he noticed that she was completely unresponsive and his son was playing outside. When he questioned the son the son thought the 4-year-old son had tried to wake her up but felt she was in a deep sleep. Was that juncture he called EMS and she was brought to the ER. She was given 2 mg of Narcan which promptly aroused her. There was a point that they are planning to intubate her but as a result of her response to Narcan she is able to protect her airway and she put on BiPAP. This is a 2nd attempt that the patient has had within the last 4 months i.e. trying to kill herself per her family. She tried doing this a few months ago in October about a month after another ex-boyfriend had committed suicide right in front of her in September this year. To the best of their knowledge i.e. the family at bedside they are not aware of any other medical or physical problems she has been undergoing up until today. REVIEW OF SYSTEMS: Could not be obtained for obvious reasons. ALLERGIES: Allergic to iodine, shellfish, Toradol, morphine, penicillin, Ultram and Levaquin. HOME MEDICATIONS: Only thing listed is Keppra but this has not been reconciled. FAMILY HISTORY: Positive for type 2 diabetes, peripheral arterial disease, prostate cancer and heart disease. SURGERIES: She has had a hysterectomy for endometriosis, right hand surgery x9 , cholecystectomy, tonsillectomy, adenoidectomy and appendectomy. SOCIAL HISTORY: Per old records she is still smoking per the family and they state she does not use illicit drugs to the best of their knowledge. LABORATORY WORK: CT head and chest film were both negative for any acute pathology. Her white count 20,000, hemoglobin and hematocrit 13 and 41, platelets 301,000 with 87% neutrophils. Sodium is 146, BUN is 14, creatinine 1.7, glucose 83, CK 478, troponin 0.054, PT, PTT is normal. UDS, salicylates are negative, amphetamines, benzodiazepines, opioids are all positive, acetaminophen is negative too, alcohol negative. Urinalysis greater than 10 epithelial cells otherwise grossly unremarkable. test negative. Initial blood gas of 7.16, pCO2 62, PO2 269, 100% nonrebreather on a BiPAP of 18 and 8, pH is 7.26, pCO2 59, PO2 is 306 on BiPAP of 18 and 8 and FiO2 of 80. PHYSICAL EXAM: VITAL SIGNS: Blood pressure is 133/80, heart rate is 88, respiration 25, temperature 95.6. GENERAL: She is a young overweight woman who is heavily sedated barely responsive although she will arouse to sternal rub moving all extremities. HEENT: Head is atraumatic and normocephalic. Pupils are miotic and reactive. No nystagmus is noted. She is anicteric not pale. ENT, oropharynx could not be evaluated she has a BiPAP mask on face but I did notice there is some blood on her nares as a result of trauma from tried to pass an NG tube down her nares. No central cyanosis visualized. NECK: Is supple, no JVD or carotid bruit, no thyromegaly. CHEST: Decreased air entry in both lung samuels, decreased inspiratory and expiratory wheezes, no crackles. There was some fascicular sounds heard. No gallops, murmurs, rubs. Rhythm is regular. ABDOMEN: Is protuberant soft, nontender, no mass or megaly appreciated. Bowel sounds hypoactive. RECTAL: Exam deferred. EXTREMITIES: No edema. Pulses distally on all extremities are symmetrical with good volume. No clubbing or cyanosis. NEURO: No focal deficits. SKIN: Intact. No breakdown, lesions, erythema. MUSCULOSKELETAL: Exam is grossly normal. ASSESSMENT: 1. Toxic encephalopathy secondary to polysubstance ingestion has a suicidal gesture. 2. Acute respiratory failure secondary to #1. 3. Probable aspiration pneumonitis from #1 and causing #2. 4. History of asthma. 5. Seizure disorder. 6. Clinical depression with suicidal ideation. 7. Reactive leukocytosis. 8. Acute kidney injury. PLAN: This time continue BiPAP support. Will get patient modest doses of Narcan to arouse her without tipping over into full withdrawal and possible subsequent seizure. If she ever has a seizure episode will give her p.r.n. Ativan. In the interim will switch her to IV Keppra starting tomorrow. I modified BiPAP settings and repeat ABG later and make further modifications if deemed necessary. No need for empiric antibiotics at this point in time except if white count is persistently elevated and there is a new infiltrate tomorrow on x-ray. Once patient is stable she will definitely need to be referred to [facility] as the this action definitely indicate that she is severely clinically depressed. IV fluid resuscitation continue, deep vein thrombosis prophylaxis with Lovenox. CRITICAL CARE TIME THIS PATIENT: Was 40 minutes which involved extensive interview with the entire family at bedside. cc: Divine Harrington MD MTDD
[2017-01-09 22:27] LABS: ALLEN TEST YES; BE -1.1 mmoll (-3.0-3.0); BLOOD TYPE ARTERIAL; DRAW SITE R RADIAL; METHB 1.3 % (0.0-1.5); O2(CT) 18.3 mL/dL (15.0-23.0); PO2(98.6) 187 mmHg (60-100); SAMPLE BLOOD; SRATE 14 BPM; THB 13.2 g/dL (11.5-17.4)
[2017-01-09 22:29] LABS: MODALITY BI PAP
[2017-01-09 22:30] LABS: PCO2(98.6) 53 mmHg (35-45)
[2017-01-09] MEDS: NS 1,000 ML IV SCH (23:51)
[2017-01-10] MEDS: LOVENOX SUBQ SCH ×2 (00:30→20:50)
[2017-01-10] MEDS: DUONEB (A & A) INH SCH ×4 (03:17→22:35)
[2017-01-10 05:07] LABS: MANUAL DIFF NEEDED? NO
[2017-01-10 05:11] LABS: BASO% 0.1 % (0.0-0.8); EOS# 0.08 X1000 (0.0-0.7); EOS% 0.9 % (0.0-10.0); HEMATOCRIT 39.9 % (37.0-47.0); HEMOGLOBIN 12.8 g/dL (12.0-16.0); IMM GRAN# 0.03 X1000 (0.0-0.04); IMM GRAN% 0.3 % (0.0-0.5); LYMPH# 2.98 X1000 (1.2-3.4); LYMPH% 33.9 % (20.5-51.1); MCH 30.5 PG (27-31); MCHC 32.1 g/dL (33-37); MONO% 5.7 % (1.7-9.3); MPV 10.6 FL (7.4-10.4); NEUT% 59.1 % (42.2-75.2); PLT 243 X1000 (130-400)
[2017-01-10 05:36] LABS: AGAP 14; ALBUMIN 3.8 g/dL (3.5-5.0); ALKALINE PHOSPHATASE 48 U/L (32-104); BUN 15 mg/dL (8-22); CALCIUM 8.2 mg/dL (8.8-10.2); CHLORIDE 107 mmol/L (98-107); COSMO 292; GOT 53 U/L (10-30); GPT 28 U/L (10-36); MAGNESIUM 1.9 mg/dL (1.5-2.7); POTASSIUM 3.9 mmol/L (3.5-5.1); SODIUM 147 mmol/L (136-145); TCO2 26 mmol/L (25-35)
[2017-01-10] MEDS: NS 1,000 ML IV SCH (06:53)
[2017-01-10] MEDS: KEPPRA 750 MG in NS 100 ML IV SCH ×2 (08:09→20:50)
[2017-01-10] MEDS: D5W 1,000 ML IV SCH ×2 (08:24→18:02)
[2017-01-10] MEDS: SODIUM CHLORIDE 0.9% INJ SCH (08:24)
[2017-01-10] MEDS: PROTONIX IV SCH (08:24)
--- NOTE | 2017-01-10 08:43 | Diag Imaging Result Doc PS360 ---
CHEST-1 VIEW - 01/10/2017 INDICATION: aspiration TECHNIQUE: COMPARISON: 01/09/2017 FINDINGS: Lung volumes are much lower now severely low. There is nonspecific bibasilar atelectasis or infiltrate. Heart size and pulmonary vascularity remain normal. IMPRESSION: Nonspecific findings. Electronically signed by Sekou Ybarra 01/10/2017 8:40 AM
[2017-01-10] MEDS ORDERED: MUCOMYST 20% INH ONE (10:14)
[2017-01-10] MEDS: MERREM 500 MG in NS 50 ML IV SCH ×2 (11:05→18:01)
--- NOTE | 2017-01-10 17:15 | PROGRESS NOTE ---
DATE: 01/10/2017 SUBJECTIVE: The patient is resting comfortably on BiPAP, no acute events noted overnight. OBJECTIVE: Vital Signs: Temperature 99.1 degrees, blood pressure 131/78, heart rate 71, respirations 22, O2 saturations 95% on BiPAP. General: This is a young female lying in bed in no acute distress. Head: Normocephalic, atraumatic. Heart: S1, S2 normal. Regular rate and rhythm. Lungs: Coarse breath sounds bilaterally. No crackles. No wheezing. Abdomen: Positive bowel sounds. Soft, nontender, nondistended. Extremities: No edema. No cyanosis. No calf tenderness. Neurologic: The patient is lethargic but will awaken when her name is called. LABS: White blood cell count 8.7, hemoglobin 12, hematocrit 39, platelets 243,000. Sodium 147, potassium 3.9, chloride 107, CO2 26, BUN 15, creatinine 0.9, glucose 75, AST 53, ALT 28, alkaline phosphatase 48, total protein 6. ASSESSMENT AND PLAN: 1. Acute hypoxemic respiratory failure likely secondary to aspiration pneumonitis. Continue with BiPAP support, bronchodilator therapy and IV antibiotics. 2. Toxic encephalopathy secondary to a drug overdose. Aware. Will continue to monitor the patient closely. Continue with IV fluids. 3. Seizure disorder. Continue on IV Keppra. 4. Depression. Aware. 5. Gastrointestinal prophylaxis. Continue on IV Protonix. 6. Deep vein thrombosis prophylaxis. Continue on Lovenox. cc: Celina Brock MD
[2017-01-10] MEDS: MUCOMYST 20% INH SCH (19:35)
[2017-01-11] MEDS: D5W 1,000 ML IV SCH ×2 (02:05→07:15)
[2017-01-11] MEDS: MERREM 500 MG in NS 50 ML IV SCH ×3 (02:06→18:11)
[2017-01-11] MEDS: DUONEB (A & A) INH SCH ×4 (04:04→21:24)
[2017-01-11 06:41] LABS: HEMATOCRIT 37.7 % (37.0-47.0); HEMOGLOBIN 12.2 g/dL (12.0-16.0); MCH 31.2 PG (27-31); MCHC 32.4 g/dL (33-37); MCV 96.4 FL (81-99); MPV 10.9 FL (7.4-10.4); RBC 3.91 XMIL (4.2-5.4)
[2017-01-11 06:59] LABS: AGAP 11; BUN 8 mg/dL (8-22); CALCIUM 8.1 mg/dL (8.8-10.2); CHLORIDE 104 mmol/L (98-107); COSMO 282; POTASSIUM 3.3 mmol/L (3.5-5.1); SODIUM 142 mmol/L (136-145); TCO2 27 mmol/L (25-35)
[2017-01-11] MEDS ORDERED: SOLU-MEDROL IV SCH (07:30)
[2017-01-11] MEDS ORDERED: D5W 1,000 ML IV SCH (07:32)
[2017-01-11] MEDS: SODIUM CHLORIDE 0.9% INJ SCH (08:09)
[2017-01-11] MEDS: KEPPRA 750 MG in NS 100 ML IV SCH ×2 (08:09→20:04)
[2017-01-11] MEDS: PROTONIX IV SCH (08:09)
[2017-01-11] MEDS: MUCOMYST 20% INH SCH ×2 (09:10→21:24)
--- NOTE | 2017-01-11 09:10 | Diag Imaging Result Doc PS360 ---
CHEST-PORTABLE - 01/11/2017 INDICATION: pneumonia TECHNIQUE: COMPARISON: 01/10/2017 FINDINGS: Lung volumes are much lower than before, now critically low. There is extensive perihilar atelectasis or infiltrate bilaterally, left greater than right. Heart size remains normal. Pulmonary vascularity appears normal. IMPRESSION: Significant worsening from prior. Electronically signed by Sekou Ybarra 01/11/2017 9:07 AM
[2017-01-11] MEDS ORDERED: LASIX IV ONE (10:05)
[2017-01-11 10:10] LABS: ALLEN TEST YES; BE 4.5 mmoll (-3.0-3.0); BLOOD TYPE ARTERIAL; DRAW SITE R RADIAL; METHB 1.3 % (0.0-1.5); MODALITY VENTIMASK; O2(CT) 16.1 mL/dL (15.0-23.0); PCO2(98.6) 46 mmHg (35-45); PO2(98.6) 54 mmHg (60-100); SAMPLE BLOOD; SAO2 94.8 % (95.0-100.0); THB 12.5 g/dL (11.5-17.4); pH(98.6) 7.42 (7.35-7.45)
[2017-01-11] MEDS ORDERED: VANCOMYCIN IV PER PHARMACY MISC SCH (10:15)
[2017-01-11] MEDS: VANCOMYCIN 1,500 MG in NS 250 ML IV SCH (13:02)
[2017-01-11] MEDS: POTASSIUM CHLORIDE 20 MEQ/SWI 20 MEQ/100 ML IVPB IV SCH ×2 (15:00→17:28)
--- NOTE | 2017-01-11 17:22 | CONSULTATION ---
DATE OF CONSULTATION: 01/11/2017 REQUESTING PHYSICIAN: Dr. Brock. REASON FOR CONSULTATION: Respiratory failure. HISTORY OF PRESENT ILLNESS: Ms. Sanchez is a 31-year-old white female with a history of seizure disorder, prior overdose attempt, who was found unresponsive. EMS was called and when they arrived, CPR was in progress. The patient did have a pulse and therefore fluid was initiated. The patient received Narcan. She had hypercapnic and hypoxemic respiratory failure with an elevated carboxyhemoglobin level. Her pH was 7.16, pCO2 of 62, PO2 269. The patient was placed on BiPAP. She continues to have high oxygen requirements. PAST MEDICAL HISTORY: 1. Prior suicidal overdose. 2. History of chronic pain syndrome. 3. Seizure disorder. 4. History of depression. 5. Obesity. 6. Status post multiple surgeries on the right hand. 7. Status post hysterectomy. 8. Status post cholecystectomy. 9. Status post tonsillectomy. 10. Status post appendectomy. SOCIAL HISTORY: Ongoing tobacco use. Alcohol use unknown. FAMILY HISTORY: Positive for peripheral arterial disease, diabetes mellitus, heart disease, and prostate cancer. REVIEW OF SYSTEMS: Limited due to hypersomnolence. PHYSICAL EXAMINATION: General: Reveals an obese white female in no distress. Vital Signs: BP 135/90, heart rate 87 and regular, respiration rate 16, oxygen saturation 90% on 50% FiO2. HEENT: Pupils are equal and reactive. Oropharynx is clear. Neck: Supple. Chest: Reveals rhonchi bilaterally. The patient will initiate a cough reflex. Abdomen: Obese and soft. Extremities: Reveal trace edema. Neurologic: Upon stimulation, patient will arouse to awake. She will follow commands. She is aware that she is in the hospital. LABORATORIES: Chest x-ray reveals bibasilar infiltrates. White blood count 8.79, hemoglobin 12.2, platelet count 161,000. Arterial blood gas on 50% face mask reveals a pH 7.42, pCO2 of 46, PO2 of 54. Chemistries: Sodium 142, potassium 3.2, chloride 104, bicarbonate 27, BUN 8, creatinine 0.6. CULTURES: No cultures during this hospitalization. IMPRESSION: This is a 31-year-old with probable overdose requiring basic life support. The patient presented to the hospital with acute hypoxemic and acute hypercapnic respiratory failure. The patient has bibasilar infiltrates consistent with an aspiration pneumonia. Clinically, she appears to be improving. She is in no respiratory distress but her oxygen requirements are elevated. RECOMMENDATIONS: 1. Cycle BiPAP as needed for acute hypoxemic and acute hypercapnic respiratory failure. 2. Encourage incentive spirometry. 3. Mobilize patient. Please get her out of bed at least 2-3 times per day. 4. It is okay for patient to have ice chips and sips of water. 5. Routine bronchodilators. 6. Additional recommendations pending hospital course. Long-term prognosis is guarded given 2nd suicide attempt in 2 months. cc: Morro Marks MD
[2017-01-11] MEDS: LOVENOX SUBQ SCH (21:12)
[2017-01-12] MEDS: VANCOMYCIN 1,500 MG in NS 250 ML IV SCH ×2 (00:19→12:34)
[2017-01-12] MEDS: MERREM 500 MG in NS 50 ML IV SCH ×3 (03:00→17:44)
[2017-01-12] MEDS: DUONEB (A & A) INH SCH ×5 (03:33→23:38)
--- NOTE | 2017-01-12 03:48 | PROGRESS NOTE ---
DATE: 01/11/2017 SUBJECTIVE: The patient remains lethargic, she is on a Ventimask. She does awaken when her name is called however she falls asleep pretty quickly. OBJECTIVE: Vital Signs: Temperature 100 degrees, blood pressure 81/62, heart rate 87, respirations 16, O2 saturation 100% on Ventimask, input 2.7 L, output 1.3 L. General: This is a young female lying in bed in no acute distress. Head: Normocephalic, atraumatic. Heart: S1, S2 normal tachycardic. Lungs: Coarse breath sounds bilaterally with rhonchi. Abdomen: Positive bowel sounds, soft, nontender, nondistended. Extremities: No edema. No cyanosis. No calf tenderness. Neuro: The patient is lethargic but will awaken and she is able to move all 4 extremities. LAB: White blood cell count 8.7, hemoglobin 12, hematocrit 37, platelets 161, 000. Sodium 142, potassium 3.3, chloride 104, CO2 27, BUN 8, creatinine 0.8, glucose 101, calcium 8.1, proBNP 293. Chest x-ray shows extensive atelectasis and infiltrate bilaterally. ASSESSMENT AND PLAN: 1. Acute hypoxemic respiratory failure secondary to aspiration pneumonia. The patient is currently on broad-spectrum antibiotics. Continue with bronchodilator therapy and supplemental oxygen. Pulmonary is consulted for further recommendations. 2. Drug overdose. Aware. 3. Toxic encephalopathy. The patient remains somewhat lethargic. Will continue to monitor closely for improvement. 4. Seizure disorder. Continue on Keppra. 5. Hypokalemia. Will replace the patient's potassium. 6. Depression. Aware. 7. Gastrointestinal prophylaxis. Continue on IV Protonix. 8. Deep vein thrombosis prophylaxis. Continue on Lovenox. cc: Celina Brock MD [facility]
[2017-01-12 05:10] LABS: ALLEN TEST YES; BE 4.3 mmoll (-3.0-3.0); BLOOD TYPE ARTERIAL; DRAW SITE R RADIAL; METHB 1.2 % (0.0-1.5); O2(CT) 17.2 mL/dL (15.0-23.0); PCO2(98.6) 50 mmHg (35-45); PO2(98.6) 56 mmHg (60-100); SAMPLE BLOOD; SAO2 94.7 % (95.0-100.0); THB 13.3 g/dL (11.5-17.4); pH(98.6) 7.39 (7.35-7.45)
[2017-01-12 05:11] LABS: MODALITY CANNULA
[2017-01-12 05:30] LABS: MANUAL DIFF NEEDED? NO
[2017-01-12 05:45] LABS: BASO% 0.1 % (0.0-0.8); EOS# 0.05 X1000 (0.0-0.7); EOS% 0.7 % (0.0-10.0); HEMATOCRIT 37.1 % (37.0-47.0); HEMOGLOBIN 12.2 g/dL (12.0-16.0); IMM GRAN# 0.03 X1000 (0.0-0.04); IMM GRAN% 0.4 % (0.0-0.5); LYMPH# 1.94 X1000 (1.2-3.4); LYMPH% 26.7 % (20.5-51.1); MCH 30.7 PG (27-31); MCHC 32.9 g/dL (33-37); MCV 93.2 FL (81-99); MONO# 0.39 X1000 (0.11-0.59); MONO% 5.4 % (1.7-9.3); MPV 10.6 FL (7.4-10.4); NEUT% 66.7 % (42.2-75.2); PLT 206 X1000 (130-400); RBC 3.98 XMIL (4.2-5.4)
[2017-01-12 06:30] LABS: AGAP 12; BUN 10 mg/dL (8-22); CALCIUM 8.6 mg/dL (8.8-10.2); CHLORIDE 104 mmol/L (98-107); COSMO 284; POTASSIUM 3.8 mmol/L (3.5-5.1); SODIUM 143 mmol/L (136-145); TCO2 27 mmol/L (25-35)
--- NOTE | 2017-01-12 07:24 | EKG Report ---
Test Performed on : 01/09/2017 5:23:47 PM Test Reason : POSS OD Blood Pressure : / mmHG Vent. Rate : 122 BPM Atrial Rate : 122 BPM P-R Int : 146 ms QRS Dur : 082 ms QT Int : 338 ms P-R-T Axes : 076 075 005 degrees QTc Int : 481 ms Sinus tachycardia. Nonspecific ST abnormality Abnormal ECG When compared with ECG of 28-OCT-2016 22:24, Vent. rate has increased BY [address] now depressed in Anterior leads Unconfirmed Result
--- NOTE | 2017-01-12 07:36 | Diag Imaging Result Doc PS360 ---
EXAM: CHEST-PORTABLE INDICATION: dyspnea TECHNIQUE: One view COMPARISON: 01/11/2017 FINDINGS: Lung volumes remain fairly low. There is increased opacity at the right lung base suggesting atelectasis and/or developing infiltrate. The left lung is stable. Cardiac silhouette is stable. IMPRESSION: Developing atelectasis and/or infiltrate at the right lung base as described. Electronically signed by Munir Talbot 01/12/2017 7:33 AM
[2017-01-12] MEDS: PROTONIX IV SCH ×2 (08:00→10:46)
[2017-01-12] MEDS: KEPPRA 750 MG in NS 100 ML IV SCH ×2 (08:30→22:07)
[2017-01-12] MEDS: MUCOMYST 20% INH SCH ×2 (09:52→19:30)
[2017-01-12] MEDS ORDERED: NS 1,000 ML IV SCH (11:31)
[2017-01-12] MEDS ORDERED: NS 1,000 ML ONE (11:44)
--- NOTE | 2017-01-12 14:45 | PROGRESS NOTE ---
DATE: 01/12/2017 SUBJECTIVE: The patient is sitting in the chair, definitely a little bit more lethargic, although is sleepy. No acute issues overnight, as per nursing staff. OBJECTIVE: Vital Signs: Temperature 97.5 degrees, heart rate 77, respiratory rate 14, blood pressure 107/56, O2 saturation 93% on 4 L nasal cannula. General Examination: This is a 31-year- old female, lying in bed, in no acute distress. HEENT: Head is normocephalic, atraumatic. Anicteric sclerae and pale conjunctivae. Mucous membranes moist. Neck: Supple. No JVD noted. No carotid bruits. Cardiovascular: S1, S2 heard. No murmurs, gallops, or rubs. Regular rate and rhythm. Respiratory: Coarse breath sounds still present in both bases, along with rhonchi, but the patient is not using any accessory muscles or having work of breathing. Abdomen: Soft, nontender to palpation. Nondistended. Bowel sounds present. No organomegaly. Extremities: No clubbing, cyanosis, or edema. Peripheral pulses present in both legs. Neurologic: The patient is still sleepy, but easily arousable. Oriented x3. LABORATORY DATA: The CBC and BMP are completely unremarkable. ABG shows pH of 7.39, with pCO2 of 50. ASSESSMENT/PLAN: 1. Acute hypercapnic and hypoxemic respiratory failure, secondary to aspiration pneumonia. The patient is on vancomycin and meropenem. We will continue with the same management. Also, the patient is on DuoNeb [id number] schedule. We are going to change it to q.4. By now, requiring 4 L of oxygen by nasal cannula. 2. Drug overdose. Aware. 3. Toxic encephalopathy. The patient is still lethargic. At this time, we are going to continue with IV fluids. 4. Seizure disorder. We will continue with Keppra IV because the patient was unable to get any oral medications. 5. Hypokalemia, resolved. 6. Gastrointestinal prophylaxis with Protonix. 7. Deep vein thrombosis prophylaxis on Lovenox. 8. Disposition: The patient is going to be sent to regular floor. The patient reports not feeling suicidal any more and, actually, this time that she was admitted to the hospital she denied any suicidal ideation or attempt. She reports that she has seen a psychiatrist in [place] recently. We will transfer her out of the unit today. cc: Randy Arnold MD MTDD
[2017-01-12] MEDS: LOVENOX SUBQ SCH (22:07)
[2017-01-13] MEDS: VANCOMYCIN 1,500 MG in NS 250 ML IV SCH (00:27)
[2017-01-13] MEDS: NS 1,000 ML IV SCH ×2 (00:34→17:53)
[2017-01-13] MEDS: MERREM 500 MG in NS 50 ML IV SCH ×3 (01:53→16:34)
[2017-01-13] MEDS: DUONEB (A & A) INH SCH ×6 (03:21→22:31)
[2017-01-13 05:20] LABS: ALLEN TEST YES; BE 3.5 mmoll (-3.0-3.0); BLOOD TYPE ARTERIAL; DRAW SITE R RADIAL; METHB 1.7 % (0.0-1.5); O2(CT) 17.1 mL/dL (15.0-23.0); PCO2(98.6) 47 mmHg (35-45); PO2(98.6) 123 mmHg (60-100); SAMPLE BLOOD; THB 12.5 g/dL (11.5-17.4)
[2017-01-13 05:21] LABS: MODALITY CANNULA
[2017-01-13 06:03] LABS: MANUAL DIFF NEEDED? NO
[2017-01-13 06:07] LABS: BASO% 0.4 % (0.0-0.8); EOS# 0.34 X1000 (0.0-0.7); EOS% 4.7 % (0.0-10.0); HEMATOCRIT 37.7 % (37.0-47.0); HEMOGLOBIN 12.3 g/dL (12.0-16.0); LYMPH% 39.8 % (20.5-51.1); MCH 30.5 PG (27-31); MCHC 32.6 g/dL (33-37); MCV 93.5 FL (81-99); MONO# 0.34 X1000 (0.11-0.59); MONO% 4.7 % (1.7-9.3); MPV 10.2 FL (7.4-10.4); NEUT% 50.4 % (42.2-75.2); PLT 209 X1000 (130-400); RBC 4.03 XMIL (4.2-5.4)
[2017-01-13 06:51] LABS: AGAP 9; BUN 14 mg/dL (8-22); CALCIUM 8.2 mg/dL (8.8-10.2); CHLORIDE 108 mmol/L (98-107); COSMO 286; POTASSIUM 3.9 mmol/L (3.5-5.1); SODIUM 144 mmol/L (136-145); TCO2 27 mmol/L (25-35)
[2017-01-13] MEDS: MUCOMYST 20% INH SCH (07:42)
--- NOTE | 2017-01-13 09:06 | Diag Imaging Result Doc PS360 ---
CHEST-2 VIEWS - 01/13/2017 INDICATION: abnormal exam TECHNIQUE: COMPARISON: 01/12/2017 FINDINGS: Stable critically low lung volumes. There is actually improvement in the bibasilar alveolar infiltrates or atelectasis. These are mostly in the lower lobes. There are trace pleural effusions. Heart size and pulmonary vascularity are normal. IMPRESSION: Improvement in the bibasilar infiltrates or atelectasis. Electronically signed by Sekou Ybarra 01/13/2017 9:04 AM
[2017-01-13] MEDS: KEPPRA 750 MG in NS 100 ML IV SCH ×2 (09:35→20:09)
[2017-01-13] MEDS: PROTONIX IV SCH (09:35)
[2017-01-13] MEDS: SODIUM CHLORIDE 0.9% INJ SCH (09:35)
--- NOTE | 2017-01-13 12:06 | PROGRESS NOTE ---
DATE: 01/13/2017 SUBJECTIVE: Patient reports feeling fine. Reports that she is feeling anxious and unable to sleep because she is not on her usual home meds which is Klonopin and Seroquel. Denies any fever or chills. OBJECTIVE: Vital Signs: Temperature 97.5 degrees, heart rate 96, respiratory 16, blood pressure 128/77. O2 saturation 96% on 3 L nasal cannula. General: This is a 31-year-old female lying in bed in no acute distress. HEENT: Head is normocephalic, atraumatic. Neck supple. No JVD noted. Cardiovascular: S1, S2 heard. No murmurs, gallops, or rubs. Regular rate and rhythm. Respiratory: Some coarse breath sounds still present in both pulmonary bases. Patient is not using any accessory muscles or having work of breathing. Abdomen soft, nontender to palpation. Bowel sounds present. No organomegaly. Extremities: No clubbing, cyanosis, or edema. Peripheral pulses present in both legs. Neurologic: Patient alert and oriented x3. Moves 4 extremities. LABORATORY DATA: CP and BMP unremarkable. ASSESSMENT AND PLAN: 1. Acute hypercapnic hypoxemic respiratory failure secondary to aspiration pneumonia. Patient on vancomycin and meropenem, day #4. The patient is still requiring 3 L of oxygen by nasal cannula. We have talked with respiratory therapy to try to wean off of oxygen. We will see how this patient does. Also, she is on DuoNeb every 4 hours as scheduled. 2. Opiate overdose, aware, and she is definitely much better. 3. Toxic encephalopathy. Patient is definitely more awake today. She is receiving a regular diet. She has been fine, but we will continue with IV fluids. 4. Seizure disorder. We will continue with Keppra IV. At discharge, we can switch it to p.o. 5. Hypokalemia, resolved. 6. Prophylaxis with Protonix. 7. Deep vein thrombosis prophylaxis with Lovenox. DISPOSITION: Patient will be restarted on her home medications today. In this case, Seroquel 50 mg at bedtime and also Klonopin 0.5 mg q. 2 hours p.r.n. for anxiety. We will continue with IV antibiotics. If the patient is requiring less oxygen and not developing any fever and white cell count is within normal limits, we may be able to discharge this patient home tomorrow. cc: Randy Arnold MD
[2017-01-13] MEDS: KLONOPIN PO PRN (12:29)
[2017-01-13] MEDS: VANCOMYCIN 1,800 MG in NS 500 ML IV SCH (17:07)
[2017-01-13] MEDS: LOVENOX SUBQ SCH (20:09)
[2017-01-13] MEDS ORDERED: SEROQUEL PO SCH (21:00)
[2017-01-14] MEDS: LOVENOX SUBQ SCH (00:11)
[2017-01-14] MEDS: MERREM 500 MG in NS 50 ML IV SCH ×2 (00:12→09:24)
[2017-01-14] MEDS: KLONOPIN PO PRN ×2 (00:12→12:05)
[2017-01-14] MEDS: DUONEB (A & A) INH SCH ×3 (03:17→11:31)
[2017-01-14] MEDS: VANCOMYCIN 1,800 MG in NS 500 ML IV SCH (03:35)
[2017-01-14 08:15] VITALS: BP 130/71
[2017-01-14] MEDS: PROTONIX IV SCH (09:24)
[2017-01-14] MEDS: SODIUM CHLORIDE 0.9% INJ SCH (09:24)
[2017-01-14] MEDS: KEPPRA 750 MG in NS 100 ML IV SCH (10:55)
--- NOTE | 2017-01-15 07:26 | DISCHARGE SUMMARY ---
ADMISSION DATE: 01/09/2017 DISCHARGE DATE: 01/14/2017 CONSULTATIONS: Dr. Morro Marks. PERTINENT PROCEDURES: 1. Head CT was negative exam. 2. Chest x-ray showed lungs are normally expanded and clear. Heart size and mediastinal contours are normal. No pneumothorax. No pleural effusion. 3. Follow-up chest x-ray showed nonspecific bibasilar atelectasis or infiltrate. 4. Third chest x-ray showed extensive perihilar atelectasis or infiltrate bilaterally left greater than right. DISCHARGE DIAGNOSES: 1. Acute hypoxemic and acute hypercapnic respiratory failure initially placed on BiPAP followed by Dr. Marks. Continue aggressive pulmonary toilet. 2. Aspiration pneumonia. Continue p.o. antibiotics. 3. Opioid overdose aware. Patient had prior overdose back in October, however, she states she does not have any suicidal ideations nor was this a suicide attempt. She has recently seen a psychiatrist in [place]. 4. Seizure disorder. Continue home medications. 5. Hypokalemia resolved. 6. Toxic encephalopathy secondary to opiate overdose resolved. HOSPITAL COURSE: Ms. Sanchez is a 31-year-old female, who carries a past medical history of clinical depression, seizures, asthma and was found to be unresponsive by her soon-to-be ex- boyfriend. Apparently, her and her boyfriend had a disagreement and he decided that they were going to part ways with her. She was baby-sitting his son. When he came to curing pickling packer the child, she was completely unresponsive. EMS was called. She was brought to the ED. She was given Narcan which promptly aroused her. They were planning to intubate the patient but as a result of her response to the Narcan she was able to protect her airway and she was placed on BiPAP. This is the second intent that the patient has had within the last 4 months to try to kill herself per the family. She tried doing this a few months back ago in October about a month after another ex- boyfriend had committed suicide in front of her in September of this year. She did go to [facility] after that visit. She was admitted for toxic encephalopathy secondary to polysubstance ingestion as well as acute respiratory failure and aspiration pneumonitis. She was continued on BiPAP support and moved to the ICU. She had p.r.n. available as well as initiated IV Keppra, and started on empiric antibiotics for aspiration pneumonia. She was given IV fluid resuscitation. Dr. Marks was consulted. He agreed with cycling the BiPAP as needed for her respiratory status and encouraged aggressive pulmonary toilet, mobilize her and get her out of bed 2 to 3 times per day as well as routine bronchodilators. She was slowly weaned off her O2. She was able to move out to the floor. Dr. Culp had a talk with the family and patient about [facility]. However, the patient reports that she is not feeling suicidal and she denied any suicidal ideation or attempt for this admit. She reports that she has recently seen a psychiatrist in [place] recently. Dr. Culp is discharging the patient back home. Her only complaint was that she was feeling anxious as to not being on her home medications. He re- initiated some of her home medications on 01/13. He feels she is appropriate for discharge home. VITAL SIGNS: Temperature is 97.7 degrees, heart rate 71, respirations 16, blood pressure 130/71, O2 is 96% on room air. DISCHARGE DIET: Regular. DISCHARGE MEDICATIONS: 1. Clindamycin 300 mg p.o. q.6 hours. 2. Klonopin 0.5 mg p.o. q.12 hours p.r.n. 3. Keppra 750 mg p.o. b.i.d. 4. Seroquel 50 mg p.o. at bedtime. FOLLOW UP: Ms. Sanchez is being discharged back home. She will need to continue to follow up with her psychiatrist, take all medications as prescribed. She is to find a primary care physician on a list that has been provided to her and follow up in 1-2 weeks. She can return to the ED for any worsening of symptoms. DISCHARGE TIME: 35 MINUTES Dictated by THANH Huynh for Randy Arnold MD Patient seen and examined. Agree with THANH note. It reflects my assessment and plan. cc: Randy Arnold MD [facility]
== END 2017-01-14 14:38 | disposition home or self-care (01) ==
LOC: ED 17:25 → SUATTDRO 23:44 → ICU 23:44 → 4N 01-12 13:54
PROVIDERS: ATTEND Internal Medicine